=== PATIENT | male | born 1970 | race Caucasian/White ===

== ENCOUNTER 2016-06-20 07:18 | Emergency (ER) | payer MEDICAID ==
[~2016-06-20] VITALS: Ht 175.3 cm; Wt 80.0 kg
[2016-06-20 07:35] VITALS: BP 105/67
[2016-06-20] MEDS ORDERED: BACITRACIN ZINC OINT UDPKT TOP ONE (08:00)
[2016-06-20] MEDS ORDERED: LIDOCAINE HCL 1% 20ML VIAL (Pyxis) INJ MC ONE ×2 (08:00→09:30)
[2016-06-20] MEDS ORDERED: DIPHENHYDRAMINE 25MG CAPSULE PO ONE (08:00)
[2016-06-20] MEDS ORDERED: CEFTRIAXONE SODIUM 1 G/VIAL IM ONE (09:30)
[2016-06-20] MEDS ORDERED: TRAMADOL 50MG TABLET PO ONE (09:30)
== END 2016-06-20 11:01 | disposition home or self-care (01) ==
LOC: ER 07:27
DX: L02.415 Cutaneous abscess of right lower limb (principal); L08.9 Local infection of the skin and subcutaneous tissue, unspecified
CPT/HCPCS: 10060; 96372; 99284; J0696; J3490; X7700; Z7610; Q0163

== ENCOUNTER 2016-07-06 22:48 | Emergency (ER) | payer MEDICAID ==
[~2016-07-06] VITALS: Ht 170.2 cm; Wt 56.0 kg
[2016-07-07 00:37] VITALS: BP 120/70
[2016-07-07] MEDS ORDERED: VISCOUS LIDOCAINE 2% 15 ML UDC MM PRN (01:15)
== END 2016-07-07 01:41 | disposition home or self-care (01) ==
LOC: ER 22:48
DX: B37.0 Candidal stomatitis (principal); F17.210 Nicotine dependence, cigarettes, uncomplicated
CPT/HCPCS: 99283